=== PATIENT | female | born 1945 | race Caucasian/White ===

== ENCOUNTER → 2018-03-25 | Outpatient (CLI) | payer OTHER | END | disposition home or self-care (01) | LOC: ROC 14:50 | PROVIDERS: ATTEND Radiology Radiation Oncology | DX: Z08 Encounter for follow-up examination after completed treatment for malignant neoplasm (principal); C69.32 Malignant neoplasm of left choroid | CPT/HCPCS: 99214; G0463 ==

== ENCOUNTER → 2018-04-05 | Outpatient (CLI) | payer OTHER ==
[~2018-04-05] MED LIST: GADOBUTROL 7.5 MMOL/7.5 ML PFS ONE
== END | disposition home or self-care (01) ==
LOC: CFH 08:38
PROVIDERS: ATTEND Radiology Radiation Oncology
DX: C79.51 Secondary malignant neoplasm of bone (principal); M48.061 Spinal stenosis, lumbar region without neurogenic claudication; M51.36 Other intervertebral disc degeneration, lumbar region
CPT/HCPCS: 72158; A9585

== ENCOUNTER → 2018-05-30 | Outpatient (CLI) | payer OTHER | END | disposition home or self-care (01) | LOC: ROC 07:51 | PROVIDERS: ATTEND Radiology Radiation Oncology | DX: C69.32 Malignant neoplasm of left choroid (principal); C79.51 Secondary malignant neoplasm of bone | CPT/HCPCS: 99213; G0463 ==

== ENCOUNTER → 2018-06-17 | Outpatient (CLI) | payer OTHER ==
[~2018-06-17] MED LIST changes: -GADOBUTROL 7.5 MMOL/7.5 ML PFS ONE; +OMNIPAQUE 350 MG/ML, 100ML BOTTLE ONE
== END | disposition home or self-care (01) ==
LOC: CFH 13:46 → EDSTATUS 14:15
PROVIDERS: ATTEND Radiology Radiation Oncology
DX: R16.0 Hepatomegaly, not elsewhere classified (principal); E27.9 Disorder of adrenal gland, unspecified; R59.0 Localized enlarged lymph nodes; R91.8 Other nonspecific abnormal finding of lung field; C78.7 Secondary malignant neoplasm of liver and intrahepatic bile duct; C69.32 Malignant neoplasm of left choroid; Z90.49 Acquired absence of other specified parts of digestive tract
CPT/HCPCS: 74170; Q9967